=== PATIENT | male | born 1995 | race Caucasian/White ===

== ENCOUNTER 2016-12-02 14:14 | Emergency (ER) | payer OTHER, BC ==
[~2016-12-02 14:14] MED LIST: NO HOME MEDICATION XX; NORCO 5-325 TA1 EACH PO; PRILOSEC OTC20 M1 PO
[2016-12-02] MEDS ORDERED: CEPHALEXIN250 M1 (14:33)
[2016-12-02] MEDS ORDERED: KEFLEX500 M4 PO (15:07)
== END 2016-12-02 15:18 ==
LOC: EDMED 14:14
PROC: 0H9MXZZ Drainage of Right Foot Skin, External Approach (ICD-10-PCS; principal; 2016-12-02)
DX: L02.611 Cutaneous abscess of right foot (principal)

== ENCOUNTER 2017-01-26 11:24 | Emergency (ER) | payer OTHER, BC ==
[~2017-01-26 11:24] MED LIST changes: +CEPHALEXIN250 M1; +KEFLEX500 M4 PO
[2017-01-26] MEDS ORDERED: KEFLEX500 M4 PO (12:23)
== END 2017-01-26 12:40 ==
LOC: EDMED 11:24
PROC: 0H9JXZZ Drainage of Left Upper Leg Skin, External Approach (ICD-10-PCS; principal; 2017-01-26)
DX: L02.416 Cutaneous abscess of left lower limb (principal)